=== PATIENT | male | born 1990 ===

== ENCOUNTER 2018-01-30 07:24 | Emergency (ER) | payer SELFPAY ==
[~2018-01-30] VITALS: Ht 182.9 cm; Wt 87.5 kg
[~2018-01-30 07:24] MED LIST: ACHD5005 PO; AMOX500C2 PO; AZTH250C PO; BENZ-13 PO; CYCL10TA9 PO; DIPH1TAB25 PO; FEXO180T84 PO; FLT05NA16 NSEACH; HYDR-34 PO; NAPR-243 PO; ONDA8TAB13 PO; PRD20T PO; TRAM50TA2 PO; TRM50T PO
--- NOTE | 2018-01-30 08:21 | ED Chest Pain ---
General Chief Complaint: Chest Wall/Rib Pain Stated Complaint: CP SINCE 01/27 ON LEFT SIDE Nursing Triage Note: TO ROOM [facility]IH FEMALE C/O L CHEST AND RIB PAIN THAT HURTS WITH BREATHING AND MOVING. ONSET SINCE TUESDAY. Nursing Sepsis Screen: No Definite Risk Source: patient, family Exam Limitations: no limitations History of Present Illness Date Seen by Provider: Jan 30, 2018 Time Seen by Provider: 08:15 Initial Comments 27-year-old male presents with a three-day history of left anterior chest pain. The patient's pain began Tuesday and presented gradually over his left chest wall. The patient felt a popping sensation in his left chest. The patient has been seen for what was felt to be chest wall syndrome here in the emergency department in the past. The patient denies significant radiation of the pain, associated shortness of breath, diaphoresis, nausea, headache or stiff neck, change in medication, fever or chill. The patient's moderately severe sharp chest pain is made worse with changes in body position but not by palpation of the chest wall. Patient has no history of heart disease. There is a family history of hypertension. Patient has been told that his cholesterol is elevated in the past Allergies and Home Medications Allergies Coded Allergies: No Known Drug Allergies (Unverified , 07/29/09) Patient Home Medication List Home Medication List Reviewed: Yes Review of Systems Constitutional: No chills, No fever EENTM: No Blurred Vision Respiratory: Denies Cough, Denies SOA at Rest Cardiovascular: See HPI, Chest Pain Gastrointestinal: Denies Abdomen Distended, Denies Abdominal Pain, Denies Diarrhea, Denies Nausea, Denies Vomiting Genitourinary: No Symptoms Reported Musculoskeletal: no symptoms reported; No back pain Skin: no symptoms reported; No rash Psychiatric/Neurological: No Symptoms Reported Endocrine: No Symptoms Reported Hematologic/Lymphatic: No Symptoms Reported Past [id number] Hx Past Med/Social Hx: Reviewed Nursing Past Med/Soc Hx Patient Social History Alcohol Use: Occasionally Uses Recreational Drug Use: Yes Smoking Status: Never a Smoker Recent Foreign Travel: No Contact w/Someone Who Travel: No Recent Infectious Disease Expo: No Recent Hopitalizations: No Immunizations Up To Date Tetanus Booster (TDap): More than 5yrs Past Medical History Surgeries: No Respiratory: No Cardiac: No Neurological: No Gastrointestinal: No Musculoskeletal: No Endocrine: No Cancer: No Psychosocial: No Integumentary: No Blood Disorders: No Family Medical History Hypertension Physical Exam Vital Signs Vital Signs - First Documented 01/30/18 07:33 Temp 98.6 Pulse 54 Resp 18 B/P (MAP) 148/91 (110) O2 Delivery Room Air Capillary Refill : Less Than 3 Seconds Height, Weight, BMI Height: 6'1" Weight: 193lbs. oz. 87.168955pq; BMI Method:Stated General Appearance: No Apparent Distress, WD/WN HEENT: Normal ENT Inspection Neck: Normal Inspection Respiratory: Lungs Clear, Normal Breath Sounds Cardiovascular: Regular Rate, Rhythm, No Murmur, Normal Peripheral Pulses Gastrointestinal: Normal Bowel Sounds, Soft Extremity: Normal Inspection Neurologic/Psychiatric: Alert, Oriented x3, No Motor/Sensory Deficits, Normal Mood/Affect Skin: Normal Color, Warm/Dry Progress/Results/Core Measures Results/Orders Lab Results Laboratory Tests Test 01/30/18 08:26 Range/Units White Blood Count 7.2 4.3-11.0 10^3/uL Red Blood Count 4.96 4.35-5.85 10^6/uL Hemoglobin 14.4 13.3-17.7 G/DL Hematocrit 41 40-54 % Mean Corpuscular Volume 83 80-99 FL Mean Corpuscular Hemoglobin 29 25-34 PG Mean Corpuscular Hemoglobin Concent 35 32-36 G/DL Red Cell Distribution Width 14.3 10.0-14.5 % Platelet Count 292 130-400 10^3/uL Mean Platelet Volume 11.0 H 7.4-10.4 FL Neutrophils (%) (Auto) 58 42-75 % Lymphocytes (%) (Auto) 30 12-44 % Monocytes (%) (Auto) 7 0-12 % Eosinophils (%) (Auto) 4 0-10 % Basophils (%) (Auto) 0 0-10 % Neutrophils # (Auto) 4.2 1.8-7.8 X 10^3 Lymphocytes # (Auto) 2.2 1.0-4.0 X 10^3 Monocytes # (Auto) 0.5 0.0-1.0 X 10^3 Eosinophils # (Auto) 0.3 0.0-0.3 10^3/uL Basophils # (Auto) 0.0 0.0-0.1 10^3/uL Prothrombin Time 13.1 12.2-14.7 SEC INR Comment 1.0 0.8-1.4 Activated Partial Thromboplast Time 28 24-35 SEC Sodium Level 138 135-145 MMOL/L Potassium Level 4.7 3.6-5.0 MMOL/L Chloride Level 107 98-107 MMOL/L Carbon Dioxide Level 26 21-32 MMOL/L Anion Gap 5 5-14 MMOL/L Blood Urea Nitrogen 12 7-18 MG/DL Creatinine 0.83 0.60-1.30 MG/DL Estimat Glomerular Filtration Rate > 60 BUN/Creatinine Ratio 14 Glucose Level 117 H 70-105 MG/DL Calcium Level 9.2 8.5-10.1 MG/DL Magnesium Level 2.5 H 1.8-2.4 MG/DL Total Bilirubin 0.3 0.1-1.0 MG/DL Aspartate Amino Transf (AST/SGOT) 18 5-34 U/L Alanine Aminotransferase (ALT/SGPT) 18 0-55 U/L Alkaline Phosphatase 83 40-136 U/L Myoglobin 23.9 10.0-92.0 NG/ML Troponin I < 0.30 <0.30 NG/ML Total Protein 7.5 6.4-8.2 GM/DL Albumin 4.3 3.2-4.5 GM/DL My Orders Orders - MAGEN MCCARTNEY MD Cbc With Automated Diff (01/30/18 07:53) Magnesium (01/30/18 07:53) Chest 1 View, Ap/Pa Only (01/30/18 07:53) Ekg Tracing (01/30/18 07:53) Cardiac Profile 1 (01/30/18 07:53) Comprehensive Metabolic Panel (01/30/18 07:53) Myoglobin Serum (01/30/18 07:53) Protime With Inr (01/30/18 07:53) Partial Thromboplastin Time (01/30/18 07:53) O2 (01/30/18 07:53) Monitor-Rhythm Ecg Trace Only (01/30/18 07:53) Lipid Panel (01/31/18 06:00) Saline Lock/Iv-Start (01/30/18 07:53) Ketorolac Injection (Toradol Injection) (01/30/18 08:30) Medications Given in ED Current Medications Medications Dose Ordered Sig/Mindi Route Start Time Stop Time Status Last Admin Dose Admin Ketorolac Tromethamine 30 mg ONCE ONCE IVP 01/30/18 08:30 01/30/18 08:31 DC 01/30/18 08:31 30 MG Vital Signs/I&O 01/30/18 07:33 Temp 98.6 Pulse 54 Resp 18 B/P (MAP) 148/91 (110) O2 Delivery Room Air Blood Pressure Mean: 110 Progress Progress Note : Time: 10:27 Progress Note The patient's pain was significantly improved with 30 mg Toradol IV. Patient's laboratory evaluation was unremarkable. His EKG demonstrated a sinus bradycardia but no acute current of injury. I discussed the findings with the patient is . I [facility]. I asked they return to the emergency department if any further problems or questions. Departure Impression Primary Impression: Chest wall pain Disposition: 01 HOME, SELF-CARE Condition: Improved Departure-Patient Inst. Decision time for Depature: 10:30 Referrals: [facility] (PCP/Family) Primary Care Physician Patient Instructions: Costochondritis Add. Discharge Instructions: Toradol for pain. [facility]. Return of any Tums or questions. All discharge instructions reviewed with patient and/or family. Voiced understanding. MGAEN MCCARTNEY MD Jan 30, 2018 08:20
[2018-01-30] MEDS ORDERED: KETOROLAC 30 MG/ML VIAL IVP ONE (08:30)
[2018-01-30 08:34] LABS: BASOPHILS % (AUTO) 0 % (0-10); EOSINOPHILS # (AUTO) 0.3 10^3/uL (0.0-0.3); EOSINOPHILS % (AUTO) 4 % (0-10); HEMATOCRIT 41 % (40-54); HEMOGLOBIN 14.4 G/DL (13.3-17.7); LYMPHOCYTES # (AUTO) 2.2 X 10^3 (1.0-4.0); LYMPHOCYTES % (AUTO) 30 % (12-44); MEAN CORPUSCULAR HEMOGLOBIN 29 PG (25-34); MEAN CORPUSCULAR HGB CONC 35 G/DL (32-36); MEAN CORPUSCULAR VOLUME 83 FL (80-99); MONOCYTES # (AUTO) 0.5 X 10^3 (0.0-1.0); MONOCYTES % (AUTO) 7 % (0-12); NEUTROPHILS # (AUTO) 4.2 X 10^3 (1.8-7.8); NEUTROPHILS % (AUTO) 58 % (42-75); PLATELET COUNT 292 10^3/uL (130-400); RED BLOOD COUNT 4.96 10^6/uL (4.35-5.85); RED CELL DISTRIBUTION WIDTH 14.3 % (10.0-14.5); WHITE BLOOD COUNT 7.2 10^3/uL (4.3-11.0)
[2018-01-30 08:45] LABS: PROTHROMBIN TIME PATIENT 13.1 SEC (12.2-14.7)
--- NOTE | 2018-01-30 08:47 | Diagnostic Imaging Report ---
Patient History: Left chest and rib pain, pain with breathing and moving. Technique: Single frontal view of the chest Comparison: 02/19/2016 FINDINGS: The lung volumes are normal. No focal consolidation is seen. No large pleural effusion or pneumothorax is seen. The cardiomediastinal silhouette is normal in size and contour. No acute osseous abnormality is seen. IMPRESSION: No acute pulmonary abnormality seen. Dictated by: Dictated on workstation # [id number]
[2018-01-30 08:55] LABS: ALANINE AMINOTRANSFERASE 18 U/L (0-55); ALBUMIN 4.3 GM/DL (3.2-4.5); ALKALINE PHOSPHATASE 83 U/L (40-136); BILIRUBIN,TOTAL 0.3 MG/DL (0.1-1.0); BUN/CREATININE RATIO 14; CALCIUM 9.2 MG/DL (8.5-10.1); CARBON DIOXIDE 26 MMOL/L (21-32); CHLORIDE 107 MMOL/L (98-107); CREATININE SERUM 0.83 MG/DL (0.60-1.30); GFR ESTIMATED > 60; GLUCOSE 117 MG/DL (70-105); MAGNESIUM 2.5 MG/DL (1.8-2.4); POTASSIUM 4.7 MMOL/L (3.6-5.0); SODIUM 138 MMOL/L (135-145); TOTAL PROTEIN 7.5 GM/DL (6.4-8.2)
[2018-01-30 09:02] LABS: MYOGLOBIN SERUM 23.9 NG/ML (10.0-92.0)
[2018-01-30 11:02] VITALS: BP 151/74
== END 2018-01-30 11:02 | disposition home or self-care (01) ==
LOC: EDUNIT# 07:24 → ER 07:26
DX: R07.89 Other chest pain (principal); E78.00 Pure hypercholesterolemia, unspecified
CPT/HCPCS: 36415; 71045; 80053; 83735; 83874; 84484; 85025; 85610; 85730; 93005; 93041; 96374